=== PATIENT | male | born 1955 | race Caucasian/White ===

== ENCOUNTER 2023-06-12 13:24 | Emergency (ER) | payer MEDICARE, SELFPAY ==
[2023-06-12 13:34] VITALS: BP 185/94; PULSE 66; RESP 20; TEMP 36.5; O2SAT 100
[2023-06-12 13:40] VITALS: BP 185/94; PULSE 66; RESP 20; TEMP 36.5; O2SAT 100
--- NOTE | 2023-06-12 13:44 | ED.WOUNDLAC ---
HPI - Wound/Laceration General Chief Complaint: Wound/Laceration Stated Complaint: Left Arm Injury Time Seen by Provider: 06/12/23 13:44 Source: patient Mode of arrival: ambulatory Limitations: no limitations History of Present Illness HPI narrative: 67 yo M presents with abrasion to L forearm for 3 days. States he scrapped arm against a metal trailer . noticed redness, swelling today. tender to touch. concerned for infection. unknown last tetanus. All systems reviewed and negative except as noted above. Related Data Home Medications Medication Instructions Recorded Confirmed gabapentin 300 mg capsule 300 mg PO DAILY 07/21/22 meloxicam 15 mg tablet 15 mg PO DAILY 07/21/22 omeprazole 40 mg capsule,delayed 40 mg PO DAILY 07/21/22 release valsartan 80 mg tablet 80 mg PO DAILY 07/21/22 finasteride 5 mg tablet mg 06/12/23 hydrocodone 5 mg-acetaminophen 325 tablet 06/12/23 mg tablet tamsulosin 0.4 mg capsule mg PO 06/12/23 Allergies Allergy/AdvReac Type Severity Reaction Status Date / Time Penicillins Allergy Rash Verified 07/21/22 13:21 Review of Systems Review of Systems: CONSTITUTIONAL: Denies fever, chills, or sweats. EYES: Denies visual changes, redness, or discharge. ENT: Denies rhinorrhea, congestion, sore throat, or otalgia. CARDIOVASCULAR: Denies chest pain, palpitations, or edema. RESPIRATORY: Denies cough or dyspnea. GASTROINTESTINAL: Denies abdominal pain, nausea, vomiting, or diarrhea. GENITOURINARY: Denies dysuria or hematuria. SKIN: Denies rash or itching. reports abrasion to L forearm MUSCULOSKELETAL: Denies back pain, joint pain, or myalgia. NEUROLOGIC: Denies headache, numbness, or weakness. PSYCHIATRIC: Denies anxiety or depression. All other systems reviewed are negative, except as documented in HPI. [facility] Past Medical History Medical History Allergies Rheumatoid arthritis with rheumatoid factor of multiple sites without organ or systems involvement Ulcer Family History Family History Father Cancer Diabetes mellitus Grandparent Depression Diabetes mellitus Social History Social History Smoking status: Never smoker Alcohol intake: former Substance use: never Gender identity (if verbalized by the patient): Male Sexual Orientation (if Verbalized by the Patient): Straight or Heterosexual Spiritual care concerns: No Comments At time of signature, agree with nursing past medical, surgical, social and family history. There is no relevant family history pertinent to the presenting complaint. Exam Narrative: GENERAL: This is a well-nourished, well-developed patient, in no apparent distress. HEAD: normocephalic, atraumatic. EYES: PERRL. Sclera clear/white. Vision is grossly intact. EARS: External ears normal NOSE: External nose normal NECK: Neck supple, non-tender without lymphadenopathy, masses or thyromegaly. CARDIOVASCULAR: Regular rate and rhythm without murmurs, gallops, or rubs. RESPIRATORY: Clear to auscultation. Breath sounds equal bilaterally. No wheezes, rales, or rhonchi. SKIN: warm, Dry, intact with no suspicious lesions or rash, good texture and turgor. abrasion to mid L forearm approx. 3 cm diameter with small amount purulent drainage. erythematous. no fluctuance. NEURO: awake, alert, and oriented to person, place and time. There were no obvious focal neurologic abnormalities. EXTREMITIES: No joint tenderness, effusion, or edema noted. Course Course Level of Care: Express Care Visit Vital Signs Vital signs: Vital Signs Temperature 36.5 C 06/12/23 13:34 Pulse Rate 66 06/12/23 13:34 Respiratory Rate 20 06/12/23 13:34 Blood Pressure 185/94 H 06/12/23 13:34 Pulse Oximetry 100 06/12/23 13:34 Oxygen Delivery Room Air 06/12/23 13:34 Temperature 36.5 C
[2023-06-12] MEDS: TETANUS,DIPHTHERIA,AC PERTUSSIS ADULT (0.5 ML) BOOSTRIX IM (13:55)
== END 2023-06-12 14:00 | disposition home or self-care (01) ==
PROVIDERS: Emergency Provider Nurse Practitioner Family; PCP Internal Medicine
DX: L08.9 Local infection of the skin and subcutaneous tissue, unspecified (principal); S50.812A Abrasion of left forearm, initial encounter; W22.8XXA Striking against or struck by other objects, initial encounter; Z23 Encounter for immunization; M05.79 Rheumatoid arthritis with rheumatoid factor of multiple sites without organ or systems involvement
CPT/HCPCS: 90471; 90715; 99213; G0463